=== PATIENT | female | born 1950 | race Caucasian/White ===

== ENCOUNTER 2018-12-28 07:33 | Emergency (ER) | payer MEDICARE ==
[~2018-12-28] VITALS: Ht 162.6 cm; Wt 81.8 kg
[~2018-12-28 07:33] MED LIST: FLUO40CA10; LOP25T PO; LORA0.5T PO; PANT40TA39 PO; WEL75T PO
[2018-12-28] MEDS ORDERED: CEPH500C5 PO (07:51)
[2018-12-28 08:12] VITALS: BP 108/65
== END 2018-12-28 08:16 | disposition home or self-care (01) ==
LOC: ER 07:34
DX: L03.213 Periorbital cellulitis (principal); I25.10 Atherosclerotic heart disease of native coronary artery without angina pectoris; E78.00 Pure hypercholesterolemia, unspecified; J44.9 Chronic obstructive pulmonary disease, unspecified; M19.90 Unspecified osteoarthritis, unspecified site; F41.9 Anxiety disorder, unspecified; F32.9 Major depressive disorder, single episode, unspecified; F17.200 Nicotine dependence, unspecified, uncomplicated; Z90.710 Acquired absence of both cervix and uterus; Z98.890 Other specified postprocedural states; Z95.0 Presence of cardiac pacemaker; Z88.2 Allergy status to sulfonamides; Z79.899 Other long term (current) drug therapy
CPT/HCPCS: 99283